=== PATIENT | male | born 1980 ===

== ENCOUNTER 2022-08-13 14:24 | Emergency (ER) | payer SELFPAY ==
[2022-08-13] MEDS ORDERED: HYDROcodone/Acetaminophen 10/325 mg Tablet ONE (17:06)
[2022-08-13] MEDS ORDERED: Ketorolac Tromethamine 30 MG/ML VIAL ONE (17:07)
== END 2022-08-13 22:52 | disposition left against medical advice (07) ==
LOC: ERS 14:24
DX: Z53.29 Procedure and treatment not carried out because of patient's decision for other reasons (principal)
CPT/HCPCS: J1885